=== PATIENT | female | born 1955 | race Caucasian/White ===

== ENCOUNTER 2020-05-06 00:08 | Outpatient (CLI) | payer MEDICARE, SELFPAY ==
[2020-05-06 17:33] LABS: SARS-CoV-2 RNA PCR Negative
== END 2020-05-06 00:09 | disposition home or self-care (01) ==
LOC: ANHCOVIDDT 00:08
PROVIDERS: PCP Internal Medicine; Visit Provider Internal Medicine Gastroenterology
DX: Z01.818 Encounter for other preprocedural examination (principal); Z11.59 Encounter for screening for other viral diseases
CPT/HCPCS: 87635; C9803; U0003

== ENCOUNTER 2020-05-08 00:39 | Day surgery (SDC) | payer MEDICARE, SELFPAY ==
[2020-05-04 11:02] VITALS: BMI 34.3
[2020-05-08 08:09] VITALS: BP 137/64; PULSE 58; RESP 18; TEMP 36.2; O2SAT 100; BMI 33.5
--- NOTE | 2020-05-08 08:26 | WPDANESEPPF ---
Anes - Initial Pre Proc Eval Procedure: Operation Date: 05/08/20 09:00 Proposed Procedures p Esophagogastroduodenoscopy&Screen Colon - Epifanio Ibarra MD Date/Time: 05/08/20 08:26 Surgeon: Epifanio Ibarra MD Pre Op Diagnosis: neoplasm Screening, epigastric pain Patient Data Age: 64 Gender: F Height: 5 ft 3 in Weight: 85.8 kg Last Vital Signs Temp 36.2 C L 05/08/20 08:09 Pulse 58 L 05/08/20 08:09 Resp 18 05/08/20 08:09 BP 137/64 05/08/20 08:09 Pulse Ox 100 05/08/20 08:09 Allergies Allergy/AdvReac Type Severity Reaction Status Date / Time No Known Allergies Allergy Mild Verified 04/07/20 10:03 Home Medications Medication Instructions Recorded Confirmed Type losartan 25 mg tablet 25 mg PO DAILY #90 tablet 02/11/20 05/08/20 Rx fluticasone propionate 50 1 spray NASAL BID 04/06/20 05/08/20 History mcg/actuation nasal spray,suspension multivitamin 1 tablet PO DAILY 04/06/20 05/08/20 History carboxymethylcellulose sodium 0.5 1 drop EACH EYE BID 04/07/20 05/08/20 History % eye drops cetirizine 10 mg chewable tablet 10 mg PO DAILY 04/07/20 05/08/20 History guaifenesin 400 mg tablet 400 mg PO .Daily tablet 04/07/20 05/08/20 History omega-3s 300 tc-oln-ftz-other 1,000 cap PO DAILY 04/07/20 05/08/20 History sfshj9m-scry oil 1,000 mg capsule famotidine 20 mg PO PRN PRN 05/04/20 05/04/20 History [place]razo Nutrition Bs Support 1 tab-cap PO DAILY 05/08/20 05/08/20 History inulin [Fiber Gummies] g PO 05/08/20 History lactobacillus combination no.8 3,000 mmu cells PO DAILY 05/08/20 05/08/20 History [Adult Probiotic] Patient hx anesthesia problems: other (shivering) Family hx anesthesia problems: none PMFSH Past Medical History Medical History Asthma Family History Family History Mother Diabetes mellitus Family history of multiple sclerosis Hypertension Family history of cardiovascular disease Family history of atrial fibrillation Family history of congestive heart failure Family history of obesity Family history of osteoporosis Family history of arthritis Family history of hearing loss Grandparent Family history of cardiovascular disease Acute myocardial infarction, Onset Age: 50 Father Family history of malignant neoplasm of stomach Family history of alcoholism Sibling Family history of obesity Family history of osteoporosis Family history of arthritis Social History Social History Smoking status: Smoker, status unknown Alcohol intake: current Anes - Eval Final PreProcedure Day of Procedure 05/08/20 08:26 Patient weight: obese Heart: regular rate and rhythm Lungs: clear to auscultation Airway: Mallampati scale class II Neurological: alert and oriented Last oral intake: >/= 8 hours ASA classification: III Emergent: no Anesthetic plan: proceed Anesthesia type and monitoring: general GIVS and standard monitoring Informed Consent: The patient's anesthetic plan and its attendant risks and benefits were discussed with the patient/family/POA. Questions were solicited and answers provided to the satisfaction of the patient/family/POA.
[2020-05-08] MEDS: LACTATED RINGERS 1,000 ML 150 ML IV CONT (08:27)
--- NOTE | 2020-05-08 08:29 | WPDGICN ---
Assessment and Plan Assessment and plan (1) Encounter for screening colonoscopy: Code(s): Z12.11 - Encounter for screening for malignant neoplasm of colon Status: Acute Assessment and Plan: Screening colonoscopy to be performed because of her age. (2) Epigastric abdominal pain: Code(s): R10.13 - Epigastric pain Status: Acute Assessment and Plan: Epigastric abdominal pain appears to be consistent with SPEP see a plan is to try an acids and perhaps Pepcid as needed. Further recommendations will be given after endoscopy. EGD to be performed today. GI Consult Note Consult date/time: 05/08/20 08:29 HPI: Halley Gray is a 64 year old female Seen in evaluation at the request of Dr. Rivera. Patient has a history of epigastric pain off and on for at least 1 year. Symptoms appear to worsen on eating spicy and acidic foods. That symptoms improved with antacids. She has not yet begun to take H2 blockers which were prescribed. She denies any abdominal pain over the last several days. Family history is noncontributory. Patient denies any weight loss or bleeding. Patient also desires neoplasia screening. Has been greater than 10 years since last colonoscopy. Her current weight appetite bowel movements are normal. Family history is noncontributory. Review of Systems Review of Systems: All systems reviewed & are unremarkable except as noted in HPI and below PMFSH Past Medical History Medical History Asthma Family History Family History Mother Diabetes mellitus Family history of multiple sclerosis Hypertension Family history of cardiovascular disease Family history of atrial fibrillation Family history of congestive heart failure Family history of obesity Family history of osteoporosis Family history of arthritis Family history of hearing loss Grandparent Family history of cardiovascular disease Acute myocardial infarction, Onset Age: 50 Father Family history of malignant neoplasm of stomach Family history of alcoholism Sibling Family history of obesity Family history of osteoporosis Family history of arthritis Social History Social History Smoking status: Smoker, status unknown Alcohol intake: current Meds Home Medications and Allergies Home Medications Medication Instructions Recorded Confirmed Type losartan 25 mg tablet 25 mg PO DAILY #90 tablet 02/11/20 05/08/20 Rx fluticasone propionate 50 1 spray NASAL BID 04/06/20 05/08/20 History mcg/actuation nasal spray,suspension multivitamin 1 tablet PO DAILY 04/06/20 05/08/20 History carboxymethylcellulose sodium 0.5 1 drop EACH EYE BID 04/07/20 05/08/20 History % eye drops cetirizine 10 mg chewable tablet 10 mg PO DAILY 04/07/20 05/08/20 History guaifenesin 400 mg tablet 400 mg PO .Daily tablet 04/07/20 05/08/20 History omega-3s 300 tx-jsg-hon-other 1,000 cap PO DAILY 04/07/20 05/08/20 History [id number] oil 1,000 mg capsule famotidine 20 mg PO PRN PRN 05/04/20 05/04/20 History Arazo Nutrition Bs Support 1 tab-cap PO DAILY 05/08/20 05/08/20 History inulin [Fiber Gummies] g PO 05/08/20 History lactobacillus combination no.8 3,000 mmu cells PO DAILY 05/08/20 05/08/20 History [Adult Probiotic] Allergies Allergy/AdvReac Type Severity Reaction Status Date / Time No Known Allergies Allergy Mild Verified 04/07/20 10:03 Vital Signs Vital Signs - 24 hr 05/08/20 08:09 Temperature 36.2 C L Pulse Rate 58 L Respiratory Rate 18 Blood Pressure 137/64 Pulse Oximetry 100 Exam Narrative: Exam Narrative: Physical exam reveals patient to be alert. Vital signs are stable. HEENT exam unremarkable. Lungs are clear to auscultation and percussion. Heart is without murmur or extra sounds. Abdominal exam bowel s
[2020-05-08] MEDS: BENZOCAINE (*SP) 60 ML SPRAY CAN (HURRICAINE) 1 SPRAY MUCOUS MEM (09:23)
[2020-05-08 09:48] VITALS: BP 97/47; PULSE 57; RESP 16; O2SAT 98
[2020-05-08 09:58] VITALS: BP 109/51; PULSE 55; RESP 19; O2SAT 100
[2020-05-08 10:08] VITALS: BP 119/53; PULSE 55; RESP 17; O2SAT 100
== END 2020-05-08 10:30 | disposition home or self-care (01) ==
PROVIDERS: PCP Internal Medicine; Visit Provider Internal Medicine Gastroenterology
PROC: 0DJ08ZZ Inspection of Upper Intestinal Tract, Via Natural or Artificial Opening Endoscopic (ICD-10-PCS; CPT 43235; principal; 2020-05-08 09:00)
DX: Z12.11 Encounter for screening for malignant neoplasm of colon (principal); K64.8 Other hemorrhoids; K57.30 Diverticulosis of large intestine without perforation or abscess without bleeding; K22.10 Ulcer of esophagus without bleeding; K21.9 Gastro-esophageal reflux disease without esophagitis; E66.9 Obesity, unspecified; Z68.33 Body mass index [BMI] 33.0-33.9, adult
CPT/HCPCS: 43235; G0121; 87635; C9803; J2704; J7120; U0003

== ENCOUNTER 2020-08-27 13:49 | Outpatient (CLI) | payer MEDICARE, SELFPAY ==
--- NOTE | ~2020-08-27 | DEXA_ITS ---
Bone Density Report Name: Halley Gray Age: 64 Sex: Female Ethnicity: White Date of : 1955 Indication: postmenopausal; Referring Provider: Becky Funk Study: Bone densitometry was performed. Exam Date: August 27, 2020 Accession number: [id number] Bone Density: Region BMD T-score Z-score Classification AP Spine (L1-L4) 1.002 -0.4 1.4 Normal Femoral Neck (Left) 0.679 -1.5 0.0 Osteopenia Total Hip (Left) 0.827 -0.9 0.3 Normal Total Hip Bilateral Avg 0.847 -0.8 0.5 Normal Femoral Neck (Right) 0.704 -1.3 0.2 Osteopenia Total Hip (Right) 0.866 -0.6 0.7 Normal World Health Organization criteria for BMD impression classify patients as: Normal (T-score at or above -1.0), Osteopenia (T-score between -1.0 and -2.5), or Osteoporosis (T-score at or below -2.5). 10-year Fracture Risk(1): Major Osteoporotic Fracture 8.5% Hip Fracture 0.9% Reported Risk Factors: [place] (), Neck BMD=0.679, BMI=34.3 (1) FRAX(R) Version 3.08. Fracture probability calculated for an untreated patient. Fracture probability may be lower if the patient has received treatment. Previous Exams: Region Exam Age BMD T-score BMD Change BMD Change Date g/cm2 vs Baseline vs Previous AP Spine(L1-L4) 08/27/2020 64 1.002 -0.4 -0.119(-10.6%) 0.025(2.5%)* 03/16/2018 62 0.977 -0.6 -0.143(-12.8%) -0.143(-12.8%) 10/26/2007 52 1.120 0.7 Total Hip(Left) 08/27/2020 64 0.827 -0.9 -0.148(-15.2%) -0.009(-1.1%) 03/16/2018 62 0.837 -0.9 -0.139(-14.2%) -0.139(-14.2%) 10/26/2007 52 0.976 0.3 Total Hip(Right) 08/27/2020 64 0.866 -0.6 -0.095(-9.9%)# -0.033(-3.7%)* 03/16/2018 62 0.899 -0.4 -0.062(-6.4%)# -0.062(-6.4%)# 10/26/2007 52 0.961 0.2 *Denotes significance at 95% confidence level, LSC for AP Spine = 0.022 g/cm2, LSC for Total Hip = 0.027 g/cm2 Clinical Information Provided by Patient: Has used the following medications: Vitamin D, Calcium Patient maximum height was 64 Menopause Age: 55 No regular weight bearing exercise Does not regularly consume dairy products Drinks caffeinated beverages Onset of menses at age 15 Number of children 2 Impression: The patient has low bone mass, based on the Left Femoral Neck T-score. The patient has an estimated ten-year risk of hip fracture of 0.9% and an estimated ten-year risk of major fracture of 8.5%, based on the WHO FRAX algorithm. The BMD for the Total Hip(Right) decreased,
== END 2020-08-27 13:50 | disposition home or self-care (01) ==
LOC: ANHIMG 13:51
PROVIDERS: PCP Internal Medicine; Visit Provider Student in an Organized Health Care Education/Training Program
DX: Z78.0 Asymptomatic menopausal state (principal); M85.852 Other specified disorders of bone density and structure, left thigh; M85.851 Other specified disorders of bone density and structure, right thigh
CPT/HCPCS: 77080

== ENCOUNTER 2020-09-05 10:41 | Outpatient (CLI) | payer MEDICARE, SELFPAY ==
--- NOTE | ~2020-09-05 | US_ITS ---
EXAMINATION: US pelvic complete w TV DATE: 09/05/2020 11:32 INDICATION: Postmenopausal bleeding Comparison:No prior studies for comparison. TECHNIQUE: Multiple transabdominal and endovaginal sonographic images of the pelvis performed. FINDINGS: The uterus measures 6.7 x 3.7 x 3.5 cm. Uterus is retroverted. The endometrial complex neil ures 12 mm. Endometrium is heterogeneous with increased vascularity. There are nabothian cysts. There is a Headache uterine fibroid measuring 2.2 cm maximum dimension. The ovaries not visualized. There is no free fluid in the pelvis. There are no abnormal masses seen on either side. IMPRESSION: 1. Thickened endomtrial complex. The differential diagnosis includes endometrial hyperplasia, polyp a nd carcinoma. Biopsy is recommended. Reviewed, dictated and finalized at location A. IMPRESSION: 1. Thickened endomtrial complex. The differential diagnosis includes endometria l hyperplasia, polyp and carcinoma. Biopsy is recommended.
== END 2020-09-05 10:42 | disposition home or self-care (01) ==
PROVIDERS: PCP Internal Medicine; Visit Provider Student in an Organized Health Care Education/Training Program
DX: N95.0 Postmenopausal bleeding (principal); R93.89 Abnormal findings on diagnostic imaging of other specified body structures
CPT/HCPCS: 76830; 76856

== ENCOUNTER 2020-09-23 11:45 | Outpatient (CLI) | payer MEDICARE, SELFPAY ==
--- NOTE | ~2020-09-23 | MM_ITS ---
EXAMINATION: MM screening jessica BI w luis HISTORY: Screening mammogram, family history of breast cancer in her sister. TECHNIQUE: Craniocaudal and mediolateral oblique 3-D tomosynthesis images were obtained and synthetic 2-D images were generated. CAD analysis was submitted and interpreted. COMPARISON: 03/16/2018, 10/08/2015, 07/11/2012 BREAST PARENCHYMAL COMPOSITION: The breasts are almost entirely fatty. FINDINGS: There is no evidence of suspicious mass, calcification, or architectural distortion to sugg est malignancy in either breast. There has been no suspicious interval change. IMPRESSION: 1. No mammographic evidence of malignancy. 2. Recommend routine screening mammography in one year. BI-RADS Category 1: Negative Reviewed, dictated and finalized at location D.
== END 2020-09-23 11:46 | disposition home or self-care (01) ==
LOC: ANHIMG 11:47
PROVIDERS: PCP Internal Medicine; Visit Provider Internal Medicine
DX: Z12.31 Encounter for screening mammogram for malignant neoplasm of breast (principal)
CPT/HCPCS: 77063; 77067

== ENCOUNTER 2020-09-30 01:16 | Outpatient (CLI) | payer MEDICARE, SELFPAY ==
[2020-10-01 03:00] LABS: SARS-CoV-2 RNA PCR Negative
== END 2020-09-30 01:17 | disposition home or self-care (01) ==
LOC: ANHCOVIDDT 01:16
PROVIDERS: PCP Internal Medicine; Visit Provider Student in an Organized Health Care Education/Training Program
DX: Z01.812 Encounter for preprocedural laboratory examination (principal); Z20.828 Contact with and (suspected) exposure to other viral communicable diseases
CPT/HCPCS: 87635; C9803; U0003

== ENCOUNTER 2020-10-02 01:42 | Day surgery (SDC) | payer MEDICARE, SELFPAY ==
[2020-09-28 10:49] VITALS: BMI 34.4
--- NOTE | 2020-10-01 07:51 | PM.IMHP ---
H&P: HPI History of Present Illness Date/Time: 10/01/20 07:51 Patient is a 65 year old postmenopausal woman who presented to gynecology office in August 2020 for a routine wellness visit. During visit, patient reported an episode of bleeding approximately one year earlier when she stared Losartan. A pelvic ultrasound was obtained and showed a thickened endometrial stripe measuring 12 mm. Endometrium was also noted to be heterogeneous with increased vascularity. Discussion had with patient regarding need for further evaluation and management. Chief complaint: thickened endometrium Narrative: Halley Gray is a 65 year old female [facility] Past Medical History Medical History Asthma Hypertension Osteoporosis Torn meniscus Surgical History Surgical History H/O tubal ligation H/O: knee surgery History of cholecystectomy [place] teeth removed Family History Family History Mother Diabetes mellitus Family history of multiple sclerosis Hypertension Family history of cardiovascular disease Family history of atrial fibrillation Family history of congestive heart failure Family history of obesity Family history of osteoporosis Family history of arthritis Family history of hearing loss Grandparent Family history of cardiovascular disease Acute myocardial infarction, Onset Age: 50 Father Family history of malignant neoplasm of stomach Family history of alcoholism Sibling Family history of obesity Family history of osteoporosis Family history of arthritis Social History Social History Smoking packs per day: 0.5 Smoking cigarettes per day: 10.0 Years smoked: 8 Smoking pack-years: 4.00 Smoking status: Former smoker Smoking end date: 05/27/80 Alcohol intake: current Drinks per week: 6 Substance use: current Substance use type: marijuana Other substance usage details: CBD 5 DROPS BID Spiritual care concerns: No Meds Home Medications and Allergies Home Medications Medication Instructions Recorded Confirmed Type fluticasone propionate 50 1 spray NASAL HS 04/06/20 09/28/20 History mcg/actuation nasal spray,suspension multivitamin 1 tablet PO DAILY 04/06/20 09/28/20 History carboxymethylcellulose sodium 0.5 1 drop EACH EYE BID 04/07/20 09/28/20 History % eye drops guaifenesin 400 mg tablet 400 mg PO QAM tablet 04/07/20 09/28/20 History omega-3s 300 wh-vin-pjx-other 1,000 cap PO DAILY 04/07/20 09/28/20 History hedhj8l-ivgm oil 1,000 mg capsule famotidine 20 mg PO DAILY 05/04/20 09/28/20 History inulin [Fiber Gummies] 2 g PO DAILY 05/08/20 09/28/20 History lactobacillus combination no.8 3,000 mmu cells PO DAILY 05/08/20 09/28/20 History [Adult Probiotic] cetirizine 10 mg capsule 10 mg PO QAM 08/27/20 09/28/20 History albuterol sulfate 2 puff INHALATION QID PRN 09/28/20 09/28/20 History ascorbic acid (vitamin C) 500 mg PO DAILY 09/28/20 09/28/20 History cannabidiol 5 drp PO BID 09/28/20 09/28/20 History cholecalciferol (vitamin D3) 250 mcg PO DAILY 09/28/20 09/28/20 History [Vitamin D3] diclofenac sodium 50 mg PO DAILY 09/28/20 09/28/20 History losartan 25 mg PO QAM 09/28/20 09/28/20 History pantoprazole 40 mg PO DAILY 09/28/20 09/28/20 History zinc 100 mg PO DAILY 09/28/20 09/28/20 History rosuvastatin 5 mg tablet 5 mg PO DAILY #90 tablet 09/29/20 Rx Allergies Allergy/AdvReac Type Severity Reaction Status Date / Time No Known Allergies Allergy Mild Verified 09/28/20 10:38
--- NOTE | 2020-10-01 07:59 | PM.IMHP ---
H&P: HPI History of Present Illness Date/Time: 10/01/20 07:59 Patient is a 65 year old postmenopausal woman who presented to gynecology office in August 2020 for a routine wellness visit. During visit, patient reported an episode of bleeding approximately one year earlier when she stared Losartan. A pelvic ultrasound was obtained and showed a thickened endometrial stripe measuring 12 mm. Endometriumwas also noted to be heterogeneous with increased vascularity. Discussion had with patient regarding need for further evaluation Discussed in-office EMB vs. hysteroscopy/D&C. Decision was made to proceed with hysteroscopy/D&C as next step in evaluation. Patient reports feeling well today without complaints. Chief complaint: thickened endometrium Narrative: Halley Gray is a 65 year old female Review of Systems Review of Systems: All systems reviewed & are unremarkable except as noted in HPI and below Constitutional: Constitutional: Reports as per HPI, Reports no additional constitutional complaints, Denies chills, Denies fever(s), Denies headache(s) and Denies night sweats Eyes: Eyes: Reports as per HPI and Reports no additional eye complaints ENT: Reports system reviewed and no additional complaints, except as documented, Reports as per HPI, Reports Normal hearing present and Denies headache(s) Cardiovascular: Cardiovascular: Reports as per HPI, Reports no additional cardiovascular complaints, Denies chest pain and Denies dyspnea Respiratory: Respiratory: Reports as per HPI, Reports no additional respiratory complaints, Denies cough and Denies dyspnea Gastrointestinal: Gastrointestinal: Reports as per HPI, Reports no additional gastrointestinal complaints, Denies abdominal pain, Denies change in bowel habits, Denies change in stool character, Denies nausea and Denies vomiting Genitourinary: Genitourinary: Reports no additional female genitourinary complaints, Reports as per HPI, Denies abnormal vaginal bleeding, Denies genital lesions, Denies hot flashes, Denies dyspareunia, Denies pelvic pain, Denies sexual dysfunction, Denies urinary incontinence, Denies vaginal discharge, Denies vaginal dryness and Denies vaginal odor Musculoskeletal: Musculoskeletal: Reports no additional musculoskeletal complaints and Reports as per HPI Integumentary/Breasts: Skin/Breast: Reports system reviewed and no additional complaints, except as docu, Reports as per HPI, Denies breast pain and Denies nipple discharge Neurologic: Reports system reviewed and no additional complaints, except as documented, Reports as per HPI, Reports Normal hearing present and Denies headache(s) Psychiatric: Psychiatric: Reports no additional psychiatric complaints, Reports as per HPI, Denies anxiety and Denies depression Endocrine: Endocrine: Reports no additional endocrine complaints and Reports as per HPI Hematologic/Lymphatic: Hematologic/Lymphatic: Reports no additional hematologic/lymphatic complaints and Reports as per HPI Allergic/Immunologic: Allergic/Immunologic: Reports no additional allergic/immunologic complaints and Reports as per HPI PMFSH Past Medical History Medical History Asthma Hypertension Osteoporosis Torn meniscus Surgical History Surgical History H/O tubal ligation H/O: knee surgery History of cholecystectomy [place] teeth removed Family History Family History Mother Diabetes mellitus Family history of multiple sclerosis Hypertension Family history of cardiovascular disease Family history of atrial fibrillation Family history of congestive heart failure Family history of obesity Family history of osteoporosis Family history of arthritis Family history of hearing loss Grandparent Family history of cardiovascular disease Acute myocardial infarction, Onset Age: 50 Father Family h
--- NOTE | 2020-10-01 10:19 | WPDANESEPPF ---
Anes - Initial Pre Proc Eval Procedure: Operation Date: 10/02/20 09:15 Proposed Procedures p Hysteroscopy, Dilation and Curettage, Possible Myosure - Becky Funk MD Date/Time: 10/01/20 10:19 Surgeon: Becky Funk MD Pre Op Diagnosis: thickened endometrium Patient Data Age: 65 Gender: F Height: 1.63 m Weight: 91 kg Allergies Allergy/AdvReac Type Severity Reaction Status Date / Time No Known Allergies Allergy Mild Verified 09/28/20 10:38 Home Medications Medication Instructions Recorded Confirmed Type fluticasone propionate 50 1 spray NASAL HS 04/06/20 09/28/20 History mcg/actuation nasal spray,suspension multivitamin 1 tablet PO DAILY 04/06/20 09/28/20 History carboxymethylcellulose sodium 0.5 1 drop EACH EYE BID 04/07/20 09/28/20 History % eye drops guaifenesin 400 mg tablet 400 mg PO QAM tablet 04/07/20 09/28/20 History omega-3s 300 be-mzt-jyy-other 1,000 cap PO DAILY 04/07/20 09/28/20 History yhkaj0u-tseb oil 1,000 mg capsule famotidine 20 mg PO DAILY 05/04/20 09/28/20 History inulin [Fiber Gummies] 2 g PO DAILY 05/08/20 09/28/20 History lactobacillus combination no.8 3,000 mmu cells PO DAILY 05/08/20 09/28/20 History [Adult Probiotic] cetirizine 10 mg capsule 10 mg PO QAM 08/27/20 09/28/20 History albuterol sulfate 2 puff INHALATION QID PRN 09/28/20 09/28/20 History ascorbic acid (vitamin C) 500 mg PO DAILY 09/28/20 09/28/20 History cannabidiol 5 drp PO BID 09/28/20 09/28/20 History cholecalciferol (vitamin D3) 250 mcg PO DAILY 09/28/20 09/28/20 History [Vitamin D3] diclofenac sodium 50 mg PO DAILY 09/28/20 09/28/20 History losartan 25 mg PO QAM 09/28/20 09/28/20 History pantoprazole 40 mg PO DAILY 09/28/20 09/28/20 History zinc 100 mg PO DAILY 09/28/20 09/28/20 History rosuvastatin 5 mg tablet 5 mg PO DAILY #90 tablet 09/29/20 Rx PMFSH Past Medical History Medical History Asthma Hypertension Osteoporosis Torn meniscus Surgical History Surgical History H/O tubal ligation H/O: knee surgery History of cholecystectomy [place] teeth removed Family History Family History Mother Diabetes mellitus Family history of multiple sclerosis Hypertension Family history of cardiovascular disease Family history of atrial fibrillation Family history of congestive heart failure Family history of obesity Family history of osteoporosis Family history of arthritis Family history of hearing loss Grandparent Family history of cardiovascular disease Acute myocardial infarction, Onset Age: 50 Father Family history of malignant neoplasm of stomach Family history of alcoholism Sibling Family history of obesity Family history of osteoporosis Family history of arthritis Social History Social History Smoking packs per day: 0.5 Smoking cigarettes per day: 10.0 Years smoked: 8 Smoking pack-years: 4.00 Smoking status: Former smoker Smoking end date: 05/27/80 Alcohol intake: current Drinks per week: 6 Substance use: current Substance use type: marijuana Other substance usage details: CBD 5 DROPS BID Spiritual care concerns: No Anes - Eval Final PreProcedure Day of Procedure 10/01/20 10:19 Patient weight: obese Heart: regular rate and rhythm Lungs: clear to auscultation and normal air movement Airway: Mallampati scale class II Neurological: alert and oriented Last oral intake: >/= 8 hours ASA classification: III Emergent: no Anesthetic plan: proceed Anesthesia type and monitoring: general GIVS Informed Consent: The patient's anesthetic plan and its attendant risks and benefits were discussed with the patient/family/POA. Questions were solicited and answers provided to the satisfaction of the patient/family/POA.
--- NOTE | 2020-10-02 06:06 | ECG_ITS ---
Measurements Intervals [place] Rate: 56 P: 44 NM: 227 QRS: 42 QRSD: 84 T: 10 QT: 445 QTc: 431 Interpretive Statements SINUS BRADYCARDIA WITH FIRST DEGREE AV BLOCK BASELINE ARTIFACT- I, II, III ABNORMAL ECG Electronically Signed On 10-02-2020 8:08:42 [employer] MACHINE OPERATOR by Thiago Gloria D.O.
[2020-10-02 08:00] VITALS: BP 146/92; PULSE 60; RESP 16; TEMP 36.4; O2SAT 100
[2020-10-02] MEDS: LACTATED RINGERS 1,000 ML 30 ML IV CONT ×2 (08:32→09:48)
[2020-10-02] MEDS: ACETAMINOPHEN 500 MG TABLET 1000 MG PO (08:34)
--- NOTE | 2020-10-02 08:41 | WPDANESEPPF ---
Anes - Initial Pre Proc Eval Procedure: Operation Date: 10/02/20 09:15 Proposed Procedures p Hysteroscopy, Dilation and Curettage, Possible Myosure - Becky Funk MD Date/Time: 10/02/20 08:41 Surgeon: Becky Funk MD Pre Op Diagnosis: thickened endometrium Patient Data Age: 65 Gender: F Height: 5 ft 4 in Weight: 87.9 kg Last Vital Signs Temp 36.4 C L 10/02/20 08:00 Pulse 60 10/02/20 08:00 Resp 16 10/02/20 08:00 BP 146/92 H 10/02/20 08:00 Pulse Ox 100 10/02/20 08:00 Allergies Allergy/AdvReac Type Severity Reaction Status Date / Time No Known Allergies Allergy Mild Verified 10/02/20 08:36 Home Medications Medication Instructions Recorded Confirmed Type fluticasone propionate 50 1 spray NASAL HS 04/06/20 10/02/20 History mcg/actuation nasal spray,suspension multivitamin 1 tablet PO DAILY 04/06/20 10/02/20 History carboxymethylcellulose sodium 0.5 1 drop EACH EYE BID 04/07/20 10/02/20 History % eye drops guaifenesin 400 mg tablet 400 mg PO QAM tablet 04/07/20 10/02/20 History omega-3s 300 xb-wyr-lsi-other 1,000 cap PO DAILY 04/07/20 10/02/20 History [id number] oil 1,000 mg capsule famotidine 20 mg PO DAILY 05/04/20 10/02/20 History inulin [Fiber Gummies] 2 g PO DAILY 05/08/20 10/02/20 History lactobacillus combination no.8 3,000 mmu cells PO DAILY 05/08/20 10/02/20 History [Adult Probiotic] cetirizine 10 mg capsule 10 mg PO QAM 08/27/20 10/02/20 History albuterol sulfate 2 puff INHALATION QID PRN 09/28/20 10/02/20 History ascorbic acid (vitamin C) 500 mg PO DAILY 09/28/20 10/02/20 History cannabidiol 5 drp PO BID 09/28/20 10/02/20 History cholecalciferol (vitamin D3) 250 mcg PO DAILY 09/28/20 10/02/20 History [Vitamin D3] diclofenac sodium 50 mg PO DAILY 09/28/20 10/02/20 History losartan 25 mg PO QAM 09/28/20 10/02/20 History pantoprazole 40 mg PO DAILY 09/28/20 10/02/20 History zinc 100 mg PO DAILY 09/28/20 10/02/20 History rosuvastatin 5 mg tablet 5 mg PO DAILY #90 tablet 09/29/20 10/02/20 Rx Patient hx anesthesia problems: none Family hx anesthesia problems: none PMFSH Past Medical History Medical History Asthma Hypertension Osteoporosis Torn meniscus Surgical History Surgical History H/O tubal ligation H/O: knee surgery History of cholecystectomy [place] teeth removed Family History Family History Mother Diabetes mellitus Family history of multiple sclerosis Hypertension Family history of cardiovascular disease Family history of atrial fibrillation Family history of congestive heart failure Family history of obesity Family history of osteoporosis Family history of arthritis Family history of hearing loss Grandparent Family history of cardiovascular disease Acute myocardial infarction, Onset Age: 50 Father Family history of malignant neoplasm of stomach Family history of alcoholism Sibling Family history of obesity Family history of osteoporosis Family history of arthritis Social History Social History Smoking packs per day: 0.5 Smoking cigarettes per day: 10.0 Years smoked: 8 Smoking pack-years: 4.00 Smoking status: Former smoker Smoking end date: 05/27/80 Alcohol intake: current Drinks per week: 6 Substance use: current Substance use type: marijuana Other substance usage details: CBD 5 DROPS BID Living arrangements: with family Spiritual care concerns: No Anes - Eval Final PreProcedure Day of Procedure 10/02/20 08:41 Patient weight: obese Heart: regular rate and rhythm Lungs: clear to auscultation Airway: Mallampati scale class II Neurological: alert and oriented Last oral intake: >/= 8 hours ASA classification: II Emergent: no Anesthetic plan: pr
--- NOTE | 2020-10-02 09:03 | WPDHPUPDATE1 ---
History and Physical Update Update Date/Time: 10/02/20 09:03 History and Physical has been reviewed, including an updated exam of the patient. There are NO changes in the patient's condition. Risks, benefits, and alternatives have been discussed and questions answered. Patient agrees to proceed with procedure.
[2020-10-02] MEDS: LIDOCAINE HCL 1% LOCAL INJ 10 ML VIAL 50 ML INFILTRATE (09:22)
--- NOTE | 2020-10-02 09:42 | SUR.OPER ---
Hysteroscope irrigation 750 in 650 out
[2020-10-02 09:48] VITALS: BP 112/60; PULSE 64; RESP 14; O2SAT 97
--- NOTE | 2020-10-02 09:48 | P.OP_ITS ---
Procedure Note - Detailed Date of procedure: 10/02/20 Pre-op diagnosis: thickened endometrium postmenopausal bleeding Post-op diagnosis: same Procedure performed: Operative hysteroscopy, dilation and curettage, endometrial polypectomy via Myosure Description of procedure: The patient was taken to the operating room where she self-transferred to the operating room table. The patient was placed in dorsal supine position. Anesthesia was administered and found to be adequate. The patient was repositioned in dorsal lithotomy position with the use of Godfrey stirrups. She was prepped and draped in the usual sterile fashion. A red rubber catheter was used to drain the bladder of 150 cc of clear urine. A bivalve speculum was inserted into the vagina. The cervix was well visualized and the anterior lip of the cervix was grasped with a single-tooth tenaculum. A paracervical block was performed with 1% plain lidocaine. 5 cc of lidocaine was administered on both sides for a total of 10 cc. The cervix was serially dilated to accommodate the hysteroscope. The hysteroscope was introduced into the endometrial cavity and a general survey was performed. Two medium sized endometrial polyps were visualized. One was pedunculated protruding from the left side wall of the endometrium. The second polyp was more sessile in appearance and was noted to be protruding from the anterior right aspect of the endometrium. Several photographs were taken. Decision was made to convert to an operative hysteroscopy. The MyoSure device was opened on the sterile field and advanced through the hysteroscope. This device was activated and rotated to clear the endometrial cavity of the polyps. After the polyps were completely evacuated, bilateral tubal ostia were well visualized. The remainder of the endometrium appeared to be atrophic and within normal limits. A few photographs of the cleared cavity for also taken. The hysteroscope was removed. A medium- size rigid curette was then used to perform a curettage. All quadrants of the endometrial cavity were explored. A minimal amount of tissue was obtained and prepared to be sent to pathology for analysis. The tenaculum was removed. No bleeding was noted. Procedure was deemed complete. The speculum was removed. The patient was cleansed and dried. She was taken out of the dorsal lithotomy position and awakened from anesthesia without difficulty. She was transferred to recovery room in stable condition. All sponge and instrument counts were correct at the end the procedure. Anesthesia: MAC Surgeon: Becky Funk MD Estimated blood loss (mL): 0 IV fluids (mL): 500 Urine output (mL): 150 Drains: No Packing: No Pathology: yes (endometrial curettings, endometrial shavings) Complications: No immediate complications Condition: stable Disposition: same day Findings: Hysteroscopic fluid: 750cc in/ 650cc out Intraoperative findings: two endometrial polyps visualized on hysterscopy, one was pedunculated, the other was more sessile, rest of cavity appeared within normal limits, bilateral tubal ostia visualized
[2020-10-02 10:18] VITALS: BP 148/66; PULSE 56; RESP 14
[2020-10-02 10:30] VITALS: BP 135/62; PULSE 60; RESP 14
--- NOTE | 2020-10-02 10:51 | WPDCN ---
HPI Data of Consult Date/Time: 10/02/20 10:51 Requesting Physician: Becky Funk MD Primary Care Provider: Salazar Rivera MD Consult Narrative Narrative: Halley Gray is a 65 year old female [facility] Past Medical History Medical History Asthma Hypertension Osteoporosis Torn meniscus Surgical History Surgical History H/O tubal ligation H/O: knee surgery History of cholecystectomy [place] teeth removed Family History Family History Mother Diabetes mellitus Family history of multiple sclerosis Hypertension Family history of cardiovascular disease Family history of atrial fibrillation Family history of congestive heart failure Family history of obesity Family history of osteoporosis Family history of arthritis Family history of hearing loss Grandparent Family history of cardiovascular disease Acute myocardial infarction, Onset Age: 50 Father Family history of malignant neoplasm of stomach Family history of alcoholism Sibling Family history of obesity Family history of osteoporosis Family history of arthritis Social History Social History Smoking packs per day: 0.5 Smoking cigarettes per day: 10.0 Years smoked: 8 Smoking pack-years: 4.00 Smoking status: Former smoker Smoking end date: 05/27/80 Alcohol intake: current Drinks per week: 6 Substance use: current Substance use type: marijuana Other substance usage details: CBD 5 DROPS BID Living arrangements: with family Spiritual care concerns: No Meds Home Medications and Allergies Home Medications Medication Instructions Recorded Confirmed Type fluticasone propionate 50 1 spray NASAL HS 04/06/20 10/02/20 History mcg/actuation nasal spray,suspension multivitamin 1 tablet PO DAILY 04/06/20 10/02/20 History carboxymethylcellulose sodium 0.5 1 drop EACH EYE BID 04/07/20 10/02/20 History % eye drops guaifenesin 400 mg tablet 400 mg PO QAM tablet 04/07/20 10/02/20 History omega-3s 300 pf-saq-bcu-other 1,000 cap PO DAILY 04/07/20 10/02/20 History ovfmm0x-imvy oil 1,000 mg capsule famotidine 20 mg PO DAILY 05/04/20 10/02/20 History inulin [Fiber Gummies] 2 g PO DAILY 05/08/20 10/02/20 History lactobacillus combination no.8 3,000 mmu cells PO DAILY 05/08/20 10/02/20 History [Adult Probiotic] cetirizine 10 mg capsule 10 mg PO QAM 08/27/20 10/02/20 History albuterol sulfate 2 puff INHALATION QID PRN 09/28/20 10/02/20 History ascorbic acid (vitamin C) 500 mg PO DAILY 09/28/20 10/02/20 History cannabidiol 5 drp PO BID 09/28/20 10/02/20 History cholecalciferol (vitamin D3) 250 mcg PO DAILY 09/28/20 10/02/20 History [Vitamin D3] diclofenac sodium 50 mg PO DAILY 09/28/20 10/02/20 History losartan 25 mg PO QAM 09/28/20 10/02/20 History pantoprazole 40 mg PO DAILY 09/28/20 10/02/20 History zinc 100 mg PO DAILY 09/28/20 10/02/20 History rosuvastatin 5 mg tablet 5 mg PO DAILY #90 tablet 09/29/20 10/02/20 Rx Allergies Allergy/AdvReac Type Severity Reaction Status Date / Time No Known Allergies Allergy Mild Verified 10/02/20 08:36 Vital Signs Vital Signs - 24 hr 10/02/20 08:00 10/02/20 09:48 10/02/20 10:18 Temperature 36.4 C L Pulse Rate 60 64 56 L Respiratory Rate 16 14 14 Blood Pressure 146/92 H 112/60 148/66 H Pulse Oximetry 100 97 10/02/20 10:30 Temperature Pulse Rate 60 Respiratory Rate 14 Blood Pressure 135/62 Pulse Oximetry
== END 2020-10-02 10:42 | disposition home or self-care (01) ==
PROVIDERS: PCP Internal Medicine; Visit Provider Student in an Organized Health Care Education/Training Program
PROC: 0U5B8ZZ Destruction of Endometrium, Via Natural or Artificial Opening Endoscopic (ICD-10-PCS; CPT 58563; principal; 2020-10-02 09:15)
DX: R93.89 Abnormal findings on diagnostic imaging of other specified body structures (principal); N95.0 Postmenopausal bleeding; N84.0 Polyp of corpus uteri; I10 Essential (primary) hypertension; J45.909 Unspecified asthma, uncomplicated; M81.0 Age-related osteoporosis without current pathological fracture; Z87.891 Personal history of nicotine dependence
CPT/HCPCS: 58558; 88305; 93005; A9270; J2250; J2405; J2704; J3010; J7120

== ENCOUNTER 2023-04-27 09:43 | Outpatient (CLI) | payer MEDICARE, SELFPAY ==
--- NOTE | 2023-04-27 10:54 | ECG_ITS ---
Measurements Intervals [place] Rate: 49 P: 72 DC: 224 QRS: 39 QRSD: 88 T: 16 QT: 451 QTc: 410 Interpretive Statements SINUS BRADYCARDIA WITH SINUS ARRHYTHMIA WITH FIRST DEGREE AV BLOCK COMPARED TO ECG 10/02/2020 08:05:16 SINUS ARRHYTHMIA NOW PRESENT Electronically Signed On 04-27-2023 15:28:21 CDT by Henrik Burgess M.D.
[2023-04-27 11:22] LABS: Basophils Percent Auto 0.7 % (0.2-1.2); Eosinophils Absolute Auto 0.1 K/mm3 (0-0.3); Eosinophils Percent Auto 1.7 % (0-4.4); Hematocrit 41.5 % (37.0-47.0); Hemoglobin 13.5 g/dL (12.0-15.0); Immature Granulocyte Absolute 0.01 K/mm3 (0.00-0.031); Immature Granulocyte Percent A 0.2 % (0-0.5); Lymphocytes Absolute Auto 2.27 K/mm3 (0.9-3.2); Lymphocytes Percent Auto 39.3 % (18.3-44.2); Mean Corpuscular HGB Conc 32.5 g/dl (32-36); Mean Corpuscular Hemoglobin 31.7 pg (26-34); Mean Corpuscular Volume 97.4 fl (80-100); Mean Platelet Volume 10.7 fl (7.4-10.4); Monocytes Absolute Auto 0.4 K/mm3 (0.1-0.6); Monocytes Percent Auto 6.4 % (2.6-8.5); Neutrophils Percent Auto 51.7 % (45.5-73.1); Platelet Count Result 231 k/mm3 (150-375); Red Blood Count 4.26 M/mm3 (4.2-5.4); Red Cell Distribution Width 12.7 % (11.5-14.5); White Blood Count 5.8 K/mm3 (4.5-10.0)
[2023-04-27 11:26] LABS: Urine Cotinine NEGATIVE
[2023-04-27 11:27] LABS: Albumin Level 4.1 g/dL (3.5-5.1); Anion Gap 2 mmol/L (8-16); Blood Urea Nitrogen 13 mg/dL (7-17); Calcium 8.9 mg/dL (8.4-10.2); Carbon Dioxide 34 mmol/L (22-30); Chloride 105 mmol/L (98-107); Estimated Glomerular Filt Rate > 60; Glucose 106 mg/dL (65-110); Potassium 4.8 mmol/L (3.4-5.0); Sodium 141 mmol/L (137-145)
[2023-04-27 12:19] LABS: Hemoglobin A1C 5.7 % (<5.7)
== END 2023-04-27 09:44 | disposition home or self-care (01) ==
LOC: ANHSURGERY 09:52
PROVIDERS: PCP Internal Medicine; Visit Provider Orthopaedic Surgery
DX: M17.11 Unilateral primary osteoarthritis, right knee (principal); Z01.818 Encounter for other preprocedural examination
CPT/HCPCS: 80048; 80307; 82040; 83036; 85025; 86850; 86900; 86901; 87081; 93005

== ENCOUNTER 2023-06-14 00:56 | Day surgery (SDC) | payer MEDICARE, SELFPAY ==
[2023-04-27 10:00] VITALS: BMI 33.3
--- NOTE | 2023-04-27 10:34 | PC.NURSE ---
Addendum entered by Rahel Smith RN 04/27/23 10:40: TOTAL JOINT CLASS 05/03/23 AT 10 AM Original Note: Report to the Outpatient Waiting Room, entrance under the green pavilion located off [facility], at time __1000 on date __05/10/23 . Planned Procedure Time: _1200 . Time changes happen often and if your time is changed the preop area will call you the afternoon before. - You and your visitor will be asked to self-screen and do not enter if you have any COVID symptoms. - A mask is optional within the hospital at this time. Patients may have clear liquids (water, carbonated beverages, clear teas, apple juice) until 3 hours prior to surgery with a maximum of 20 ounces. - No food from midnight until time of surgery - Infants may have breast milk until 4 hours before surgery, formula 6 hours prior to surgery. - Children will be allowed to drink immediately following surgery. If applicable, please bring a bottle or sippy cup to assist with drinking. Juice, water, soda, and popsicles are readily available. For infants on formula, please bring formula the day of surgery. Pacifiers are allowed. Take the following medications with a SIP of water the morning of surgery: ___AMLODIPINE, DO NOT STOP ANY OF YOUR OTHER PRESCRIPTION MEDICATIONS PRIOR TO SURGERY ?EXCEPT THE FOLLOWING Medications to discontinue per physician __ALL VITAMINS/SUPPLEMENTS 3 DAYS PRE OP .LAST DOSE 05/06/23 Please no make-up, nail mohawk, hairspray, perfume, deodorant, or body powder the day of surgery. No jewelry (including any body piercings) or valuables the day of surgery, leave them at home. Please take a shower or bath the night before, or the morning of, surgery with an antibacterial soap. Wear comfortable, loose fitting clothing. Children are encouraged to wear pajamas. - Jewelry must be removed prior to entering the operating room. Rings and piercings that are not removed may be cut off. - The hospital will not accept responsibility for valuables. - Please leave all valuables, including medications, at home the day of surgery. If you are going home after surgery, a licensed hammer driver must drive you home. - NO public transportation without another adult if you receive anesthesia. - We recommend that an adult stay with you for 24 hours following discharge. - We also recommend that you do not drive, make important decision, drink alcoholic beverages, or take any drugs that were not prescribed by your health care provider for at least 24 hours after your discharge time. For Pediatric surgeries, we recommend two adults accompany the child home. Follow any additional instructions given to you from your surgeon. If you or anyone in your household have experienced Covid symptoms in the past week, please notify your surgeon or the nurse liaison at the phone number below for possible testing. VERBAL AND WRITTEN instructions given to PATIENT and asked if any additional questions and then verbalized understanding. Patient advised to call surgeon office or pre surgery nurse liaison [phone] if any additional questions.
[2023-04-27 10:55] VITALS: BP 146/86; PULSE 62; RESP 18; TEMP 36.6; O2SAT 98
--- NOTE | 2023-05-05 07:47 | PM.IMHP ---
H&P: HPI History of Present Illness Date/Time: 05/05/23 07:47 Chief Complaint: Right knee DJD Narrative: 67-year-old female patient of Dr. Rivera who presents today for a right total arthroplasty. Patient has been having pain in his knee for 2-3 years. It has progressively got worse to the point now where she is having pain on the basis. Patient is not getting any relief nonsurgical treatments in the knee. She feels this point she is ready to proceed with total knee arthroplasty at this point. Review of Systems Review of Systems: All systems reviewed & are unremarkable except as noted in HPI and below PMFSH Past Medical History Medical History Asthma Hypertension Osteoporosis Torn meniscus Surgical History Surgical History H/O tubal ligation H/O: knee surgery History of cholecystectomy History of dilatation and curettage History of hysteroscopy [place] teeth removed Family History Family History Mother Diabetes mellitus Family history of multiple sclerosis Hypertension Family history of cardiovascular disease Family history of atrial fibrillation Family history of congestive heart failure Family history of obesity Family history of osteoporosis Family history of arthritis Family history of hearing loss Grandparent Family history of cardiovascular disease Acute myocardial infarction, Onset Age: 50 Father Family history of malignant neoplasm of stomach Family history of alcoholism Sibling Family history of obesity Family history of osteoporosis Family history of arthritis Social History Social History Smoking packs per day: 0.5 Smoking cigarettes per day: 10.0 Years smoked: 7 Smoking pack-years: 3.50 Smoking status: Former smoker Tobacco type: cigarettes Smoking end date: 11/27/94 Additional smoking assessment comments: DENIES ANY FORM OF TOBACCO USE Alcohol intake: current Drinks per week: 3 Substance use: current Substance use type: marijuana Other substance usage details: CBD 5 DROPS BID Living arrangements: with family Spiritual care concerns: No Meds Home Medications and Allergies Home Medications Medication Instructions Recorded Confirmed Type fluticasone propionate 50 1 spray intranasal 04/06/20 04/27/23 History mcg/actuation nasal spray,suspension (Allergy Relief (fluticasone)) multivitamin (Multiple Vitamins 1 tablet PO DAILY 04/06/20 04/27/23 History tablet) carboxymethylcellulose sodium 0.5 1 drop ophthalmic (eye) BID 04/07/20 04/27/23 History % eye drops (Refresh Tears) omega-3s 300 jr-cdq-uwa-other 1,000 cap PO DAILY 04/07/20 04/27/23 History aygcg3x-bcng oil 1,000 mg capsule ([place]-3 Fish Oil) lactobacillus combination no.8 3 3,000 mmu cells PO DAILY 05/08/20 04/27/23 History billion cell capsule (Adult Probiotic) cetirizine 10 mg capsule (Zyrtec) 10 mg PO QAM 08/27/20 04/27/23 History ascorbic acid (vitamin C) 500 mg 1,000 mg PO DAILY 09/28/20 04/27/23 History tablet cholecalciferol (vitamin D3) 125 250 mcg PO DAILY 09/28/20 04/27/23 History mcg (5,000 unit) tablet (Vitamin D3) zinc 100 mg tablet 50 mg PO DAILY 09/28/20 04/27/23 History famotidine 20 mg tablet 20 mg PO DAILY #30 tabs 12/28/21 04/27/23 Rx rosuvastatin 5 mg tablet See Rx Instructions .Route 04/26/23 04/27/23 Rx .COMPLEX #90 tabs amlodipine 2.5 mg tablet 2.5 mg PO QAM 04/27/23 04/27/23 History calcium carbonate 600 mg-vitamin 2 tablet PO DAILY 04/27/23 04/27/23 History D3 10 mcg (400 unit) tablet (Calcium 600 + D(3)) flaxseed oil 1,300 mg-omega 3,6,9 1 cap PO DAILY 04/27/23 04/27/23 History 845 mg-117 mg-117 mg capsule losartan 25 mg tablet 50 mg PO QAM 04/27/23 04/27/23 Hist
--- NOTE | 2023-05-12 07:59 | PM.IMHP ---
H&P: HPI History of Present Illness Date/Time: 05/12/23 07:59 Chief Complaint: Right knee DJD Narrative: 67-year-old female patient of Dr. Rivera who presents today for right total knee arthroplasty. Patient has advanced patellofemoral osteoarthritis and moderately severe lateral compartment osteoarthritis in the knee. She has been treating this nonsurgically up to this point with anti-inflammatories and occasional cortisone injections. She is having continued symptoms on a daily basis. She feels at this point she would rather proceed with total knee arthroplasty rather continue nonsurgical treatment. Review of Systems Review of Systems: All systems reviewed & are unremarkable except as noted in HPI and below PMFSH Past Medical History Medical History Asthma Hypertension Osteoporosis Torn meniscus Surgical History Surgical History H/O tubal ligation H/O: knee surgery History of cholecystectomy History of dilatation and curettage History of hysteroscopy [place] teeth removed Family History Family History Mother Diabetes mellitus Family history of multiple sclerosis Hypertension Family history of cardiovascular disease Family history of atrial fibrillation Family history of congestive heart failure Family history of obesity Family history of osteoporosis Family history of arthritis Family history of hearing loss Grandparent Family history of cardiovascular disease Acute myocardial infarction, Onset Age: 50 Father Family history of malignant neoplasm of stomach Family history of alcoholism Sibling Family history of obesity Family history of osteoporosis Family history of arthritis Social History Social History Smoking packs per day: 0.5 Smoking cigarettes per day: 10.0 Years smoked: 7 Smoking pack-years: 3.50 Smoking status: Former smoker Tobacco type: cigarettes Smoking end date: 11/27/94 Additional smoking assessment comments: DENIES ANY FORM OF TOBACCO USE Alcohol intake: current Drinks per week: 3 Substance use: current Substance use type: marijuana Other substance usage details: CBD 5 DROPS BID Living arrangements: with family Spiritual care concerns: No Meds Home Medications and Allergies Home Medications Medication Instructions Recorded Confirmed Type fluticasone propionate 50 1 spray intranasal HS 04/06/20 04/27/23 History mcg/actuation nasal spray,suspension (Allergy Relief (fluticasone)) multivitamin (Multiple Vitamins 1 tablet PO DAILY 04/06/20 04/27/23 History tablet) carboxymethylcellulose sodium 0.5 1 drop ophthalmic (eye) BID 04/07/20 04/27/23 History % eye drops (Refresh Tears) omega-3s 300 dz-tls-gls-other 1,000 cap PO DAILY 04/07/20 04/27/23 History fccfu0a-iadp oil 1,000 mg capsule ([place]-3 Fish Oil) lactobacillus combination no.8 3 3,000 mmu cells PO DAILY 05/08/20 04/27/23 History billion cell capsule (Adult Probiotic) cetirizine 10 mg capsule (Zyrtec) 10 mg PO QAM 08/27/20 04/27/23 History ascorbic acid (vitamin C) 500 mg 1,000 mg PO DAILY 09/28/20 04/27/23 History tablet cholecalciferol (vitamin D3) 125 250 mcg PO DAILY 09/28/20 04/27/23 History mcg (5,000 unit) tablet (Vitamin D3) zinc 100 mg tablet 50 mg PO DAILY 09/28/20 04/27/23 History famotidine 20 mg tablet 20 mg PO DAILY #30 tabs 12/28/21 04/27/23 Rx rosuvastatin 5 mg tablet See Rx Instructions .Route 04/26/23 04/27/23 Rx .COMPLEX #90 tabs amlodipine 2.5 mg tablet 2.5 mg PO QAM 04/27/23 04/27/23 History calcium carbonate 600 mg-vitamin 2 tablet PO DAILY 04/27/23 04/27/23 History D3 10 mcg (400 unit) tablet (Calcium 600 + D(3)) flaxseed oil 1,300 mg-omega 3,6,9 1 cap PO DAILY 04/27/23 04/27/23 History 8
--- NOTE | 2023-06-01 10:36 | PC.NURSE ---
Report to the Outpatient Waiting Room, entrance under the green pavilion located off [facility], at time __0600____ on date ___06/14/23____. Planned Procedure Time: __0730 . Time changes happen often and if your time is changed the preop area will call you the afternoon before. - You and your visitor will be asked to self-screen and do not enter if you have any COVID symptoms. - A mask is optional within the hospital at this time. Patients may have clear liquids (water, carbonated beverages, clear teas, apple juice) until 3 hours prior to surgery with a maximum of 20 ounces. - No food from midnight until time of surgery - Infants may have breast milk until 4 hours before surgery, formula 6 hours prior to surgery. - Children will be allowed to drink immediately following surgery. If applicable, please bring a bottle or sippy cup to assist with drinking. Juice, water, soda, and popsicles are readily available. For infants on formula, please bring formula the day of surgery. Pacifiers are allowed. Take the following medications with a SIP of water the morning of surgery: _AMLODIPINE DO NOT STOP ANY OF YOUR OTHER PRESCRIPTION MEDICATIONS PRIOR TO SURGERY ?EXCEPT THE FOLLOWING Medications to discontinue per physician ___ALL VITAMINS/SUPPLEMENTS 3 DAYS PRE OP.LAST DOSE 06/10/23 Please no make-up, nail australian, hairspray, perfume, deodorant, or body powder the day of surgery. No jewelry (including any body piercings) or valuables the day of surgery, leave them at home. Please take a shower or bath the night before, or the morning of, surgery with an antibacterial soap. Wear comfortable, loose fitting clothing. Children are encouraged to wear pajamas. - Jewelry must be removed prior to entering the operating room. Rings and piercings that are not removed may be cut off. - The hospital will not accept responsibility for valuables. - Please leave all valuables, including medications, at home the day of surgery. If you are going home after surgery, a licensed laborer driver must drive you home. - NO public transportation without another adult if you receive anesthesia. - We recommend that an adult stay with you for 24 hours following discharge. - We also recommend that you do not drive, make important decision, drink alcoholic beverages, or take any drugs that were not prescribed by your health care provider for at least 24 hours after your discharge time. For Pediatric surgeries, we recommend two adults accompany the child home. Follow any additional instructions given to you from your surgeon. If you or anyone in your household have experienced Covid symptoms in the past week, please notify your surgeon or the nurse liaison at the phone number below for possible testing. Telephone instructions given to ___PATIENT and asked if any additional questions and then verbalized understanding. Patient advised to call surgeon office or pre surgery nurse liaison [phone] if any additional questions.
--- NOTE | 2023-06-01 10:43 | PC.NURSE ---
PT STATES NO CHANGE IN HEALTH HX SINCE LAST INTERVIEW ON 04/27/23
--- NOTE | 2023-06-12 12:14 | PM.IMHP ---
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 She has been having symptoms in the right knee for several years. She has been treated this nonsurgically with anti-inflammatories as well as occasional cortisone injections. It has been more than 3 months since her last injection. She is getting minimal improvement from nonsurgical treatment. She has severe lateral compartment and patellofemoral osteoarthritis in the right knee. At this point patient feels she is ready proceed with total knee arthroplasty rather than continue nonsurgical treatment Review of Systems Review of Systems: All systems reviewed & are unremarkable except as noted in HPI and below PMFSH Past Medical History Medical History Asthma Hypertension Osteoporosis Torn meniscus Surgical History Surgical History H/O tubal ligation H/O: knee surgery History of cholecystectomy History of dilatation and curettage History of hysteroscopy [place] teeth removed Family History Family History Mother Diabetes mellitus Family history of multiple sclerosis Hypertension Family history of cardiovascular disease Family history of atrial fibrillation Family history of congestive heart failure Family history of obesity Family history of osteoporosis Family history of arthritis Family history of hearing loss Grandparent Family history of cardiovascular disease Acute myocardial infarction, Onset Age: 50 Father Family history of malignant neoplasm of stomach Family history of alcoholism Sibling Family history of obesity Family history of osteoporosis Family history of arthritis Social History Social History Smoking packs per day: 0.5 Smoking cigarettes per day: 10.0 Years smoked: 7 Smoking pack-years: 3.50 Smoking status: Former smoker Tobacco type: cigarettes Smoking end date: 11/27/94 Additional smoking assessment comments: DENIES ANY FORM OF TOBACCO USE Alcohol intake: current Drinks per week: 3 Substance use: current Substance use type: marijuana Other substance usage details: CBD 5 DROPS BID Living arrangements: with family Spiritual care concerns: No Meds Home Medications and Allergies Home Medications Medication Instructions Recorded Confirmed Type fluticasone propionate 50 1 spray intranasal HS 04/06/20 06/01/23 History mcg/actuation nasal spray,suspension (Allergy Relief (fluticasone)) multivitamin (Multiple Vitamins 1 tablet PO DAILY 04/06/20 06/01/23 History tablet) carboxymethylcellulose sodium 0.5 1 drop ophthalmic (eye) BID 04/07/20 06/01/23 History % eye drops (Refresh Tears) omega-3s 300 lt-jmi-xhg-other 1,000 cap PO DAILY 04/07/20 06/01/23 History rquxy3m-pfil oil 1,000 mg capsule (Effie-3 Fish Oil) lactobacillus combination no.8 3 3,000 mmu cells PO DAILY 05/08/20 06/01/23 History billion cell capsule (Adult Probiotic) cetirizine 10 mg capsule (Zyrtec) 10 mg PO QAM 08/27/20 06/01/23 History ascorbic acid (vitamin C) 500 mg 1,000 mg PO DAILY 09/28/20 06/01/23 History tablet cholecalciferol (vitamin D3) 125 250 mcg PO DAILY 09/28/20 06/01/23 History mcg (5,000 unit) tablet (Vitamin D3) zinc 100 mg tablet 50 mg PO DAILY 09/28/20 06/01/23 History famotidine 20 mg tablet 20 mg PO DAILY #30 tabs 12/28/21 06/01/23 Rx rosuvastatin 5 mg tablet See Rx Instructions .Route 04/26/23 06/01/23 Rx .COMPLEX #90 tabs amlodipine 2.5 mg tablet 2.5 mg PO QAM 04/27/23 06/01/23 History calcium carbonate 600 mg-vitamin 2 tablet PO DAILY 04/27/23 06/01/23 History D3 10 mcg (400 unit) tablet (Calciu
[2023-06-14] VITALS (13 sets, daily range): BP systolic 98–142; BP diastolic 50–66; PULSE 60–88; RESP 12–16; TEMP 36.2–36.9; O2SAT 91–100
--- NOTE | ~2023-06-14 | XR_ITS ---
Right Knee Technique: Portable AP and crosstable lateral views Clinical History: Status post TKR Findings: Patient is status post total knee replacement. Orthopedic hardware alignment appears anatom ic. No hardware complication is evident. Subcutaneous emphysema and swelling is likely postoperative in nature. No acute osseous fracture is seen. Impression: Status post total knee replacement, without evidence of hardware complication. Reviewed, dictated and finalized at location . Impression: Status post total knee replacement, without evidence of hardware complication.
[2023-06-14] MEDS: LACTATED RINGERS 1,000 ML 30 ML IV CONT ×2 (06:35→11:05)
[2023-06-14] MEDS: ACETAMINOPHEN 500 MG TABLET 1000 MG PO ×2 (06:45→18:12)
[2023-06-14 07:09] LABS: Glucose Point of Care 118 mg/dl (65-105)
[2023-06-14] MEDS: VANCOMYCIN 1,250 MG/NS 250 ML BAG 166.67 MG IVPB (07:10)
[2023-06-14] MEDS: TRANEXAMIC ACID 1,000MG/ISO100 1,000 MG/100 ML BAG 200 MG IVPB (07:11)
--- NOTE | 2023-06-14 07:11 | WPDANESEPPF ---
Anes - Initial Pre Proc Eval Procedure: Operation Date: 06/14/23 07:30 Proposed Procedures p Right Total Knee Arthroplasty - Silviano Mccann MD Date/Time: 06/14/23 07:11 Surgeon: Silviano Mccann MD Pre Op Diagnosis: OA right knee Patient Data Age: 67 Gender: F Height: 1.63 m Weight: 88.2 kg Last Vital Signs Temp 36.6 C 04/27/23 10:55 Pulse 62 04/27/23 10:55 Resp 18 04/27/23 10:55 BP 146/86 H 04/27/23 10:55 Pulse Ox 98 04/27/23 10:55 O2 Del Method Room Air 04/27/23 10:55 Allergies Allergy/AdvReac Type Severity Reaction Status Date / Time lisinopril AdvReac Other Verified 06/14/23 06:59 Home Medications Medication Instructions Recorded Confirmed Type fluticasone propionate 50 1 spray intranasal HS 04/06/20 06/14/23 History mcg/actuation nasal spray,suspension (Allergy Relief (fluticasone)) multivitamin (Multiple Vitamins 1 tablet PO DAILY 04/06/20 06/14/23 History tablet) carboxymethylcellulose sodium 0.5 1 drop ophthalmic (eye) BID 04/07/20 06/14/23 History % eye drops (Refresh Tears) omega-3s 300 ui-psl-eqw-other 1,000 cap PO DAILY 04/07/20 06/14/23 History vklyk0x-qzdl oil 1,000 mg capsule (Abiquiu-3 Fish Oil) lactobacillus combination no.8 3 3,000 mmu cells PO DAILY 05/08/20 06/14/23 History billion cell capsule (Adult Probiotic) cetirizine 10 mg capsule (Zyrtec) 10 mg PO QAM 08/27/20 06/14/23 History ascorbic acid (vitamin C) 500 mg 1,000 mg PO DAILY 09/28/20 06/14/23 History tablet cholecalciferol (vitamin D3) 125 250 mcg PO DAILY 09/28/20 06/14/23 History mcg (5,000 unit) tablet (Vitamin D3) zinc 100 mg tablet 50 mg PO DAILY 09/28/20 06/14/23 History famotidine 20 mg tablet 20 mg PO DAILY #30 tabs 12/28/21 06/14/23 Rx rosuvastatin 5 mg tablet See Rx Instructions .Route 04/26/23 06/14/23 Rx .COMPLEX #90 tabs amlodipine 2.5 mg tablet 2.5 mg PO QAM 04/27/23 06/14/23 History calcium carbonate 600 mg-vitamin 2 tablet PO DAILY 04/27/23 06/14/23 History D3 10 mcg (400 unit) tablet (Calcium 600 + D(3)) flaxseed oil 1,300 mg-omega 3,6,9 1 cap PO DAILY 04/27/23 06/14/23 History 845 mg-117 mg-117 mg capsule losartan 25 mg tablet 50 mg PO QAM 04/27/23 06/14/23 History magnesium 200 mg tablet 400 mg PO DAILY 04/27/23 06/14/23 History metformin 500 mg tablet 250 mg PO DAILY 04/27/23 06/14/23 History pantoprazole 40 mg tablet,delayed 40 mg PO HS 04/27/23 06/14/23 History release potassium 99 mg tablet 99 mg PO QPM 04/27/23 06/14/23 History pseudoephedrine-guaifenesin ER 120 1 cap PO DAILY 04/27/23 06/14/23 History mg-250 mg capsule,extended release rutin 500 mg tablet 1,000 mg PO DAILY 04/27/23 06/14/23 History turmeric 400 mg capsule 300 mg PO DAILY 04/27/23 06/14/23 History Laboratory Tests 06/14/23 07:07 POC Capillary Glucose 118 H mg/dl (65-105) Patient hx anesthesia problems: other (cold) Family hx anesthesia problems: none Results Review: All pre-operative results and documents have been reviewed as part of the pre-operative evaluation. [facility] Past Medical History Medical History Asthma Hypertension Osteoporosis Torn meniscus Surgical History Surgical History H/O tubal ligation H/O: knee surgery History of cholecystectomy History of dilatation and curettage History of hysteroscopy [place] teeth removed Family History Family History Mother Diabetes mellitus Family history of multiple sclerosis Hypertension Family history of cardiovascular disease Family history of atrial fibrillation Family history of congestive heart failure Family history of obesity Family history of osteoporosis Family history of arthritis Family history of hearing loss Grandparent Family history of cardiovascular disease Acu
--- NOTE | 2023-06-14 07:16 | WPDHPUPDATE1 ---
History and Physical Update Update Date/Time: 06/14/23 07:16 History and Physical has been reviewed, including an updated exam of the patient. There are NO changes in the patient's condition. Risks, benefits, and alternatives have been discussed and questions answered. Patient agrees to proceed with procedure.
[2023-06-14] MEDS: ceFAZolin 2 GM/D5W 50 ML 2 GM/50 ML BAG IVPB (07:32)
[2023-06-14] MEDS: ceFAZolin SODIUM 1 GM VIAL 3 GM (08:05)
[2023-06-14] MEDS: GENTAMICIN BONE CEMENT REFOBACIN 1 EACH TOPICAL (10:00)
[2023-06-14] MEDS: ceFAZolin SODIUM 1 GM VIAL IV PUSH (10:12)
[2023-06-14] MEDS: TRANEXAMIC ACID 1,000 MG/10 ML AMPUL 1000 MG IV PUSH (10:12)
[2023-06-14 11:12] LABS: Glucose Point of Care 160 mg/dl (65-105)
--- NOTE | 2023-06-14 11:14 | PM.OP ---
Procedure Note - Brief Procedure Note - Brief Date of procedure: 06/14/23 OA right knee Procedure performed: Right total knee arthroplasty Surgeon: LOI Cordova Description of procedure: 67-year-old female who underwent right total knee arthroplasty on 06/14. I was involved in the procedure including positioning patient on your table and 1st assisting to the time of surgery. Total time spent was 3-1/2 hours
--- NOTE | 2023-06-14 11:22 | W.PM.PROC2 ---
Procedure Note - Detailed Date of Procedure 06/14/23 Pre-op Diagnosis OA right knee Post-op Diagnosis Same Procedure Performed Right total knee arthroplasty Surgeon Silviano Mccann MD Conventions Reservationist Mayur Anesthesia General Description of Procedure Patient was brought to the operating room and general anesthesia was administered. She received 2 g of Ancef weight based vancomycin and 1 g of tranexamic acid preoperatively and the right leg was prepped draped usual fashion. Limb was exsanguinated tourniquet elevated to 300 mmHg. A 7 in longitudinal incision was made and a vastus medialis splitting approach utilized splitting the vastus medialis at the level of the superior pole of patella. Was a very large superior osteophyte that was removed. Infrapatellar and suprapatellar fat pads were excised a quadriceps synovectomy carried out. A minimal resection of the lateral retinaculum from the lateral margin of the patella was performed and the median ridge thickest portion of the patella centrally measured 17 mm and the lateral facet only measured 10 mm thickness. The lateral facet was markedly scalloped due to wear and eburnated. I did not feel that the patella was thick enough to safely resurface. A guide anitha was inserted down the femoral canal after aspiration of canal contents using the 5 degree valgus cutting bushing, 9 mm of bone removed from the distal femur. Next the tibial plateau was cut. Our initial cut did not quite reach the level of subchondral bone posteriorly. Additional 2 mm of bone was cut. We made a cut perpendicular long axis of the tibia. Meniscal remnants were excised the PCL recessed. The flexion gap measured 8 mm medially and 11 mm laterally. The femur was sized with the sizing guide placed at 4? of external rotation posterior referencing pinholes were placed. The size 62.5 cutting block seemed a little bit wide but was the appropriate size anteriorly and to avoid notching we did have to introduce about 2 or 3? of flexion on the distal femoral cut. AP and chamfer cuts were made the 62.5 had adequate fit with about 1 mm of lateral overhang distally when flush with the medial femoral condyle. A smaller implant would have notched excessively. We had appropriate mediolateral balance at 90? with the 10 CR insert trial. The tibia was sized to a 67 which fit line to line anteromedial to posterolateral and this was punched and we trialed with 10 . There was appropriate stability anterior drawer but we lacked about 10? of extension. She had a 10 degree flexion contracture before surgery. Posterior capsular release was performed and posterior femoral osteophytes removed and on repeat trialing with the 10 we had a barely positive bounce lacking perhaps 1 or 2? of extension. There was 3 mm of medial opening in this position. We assessed the femoral cut carefully and with a 5 degree anitha I felt we were at about 4.5? of anatomic axis valgus on the distal femoral cut and we removed additional mm of bone from lateral femoral condyle to convert the cut to about 5.5? of valgus and this the knee came out to full extension with the 10 insert with negative bounce and a mm of lateral plateau 3 mm of medial play and appropriate stability at 90? to anterior drawer being a little bit loose medially but this tightened up with the arthrotomy reapproximation. Lug holes for the femoral component were drilled. Step drill was used to make multiple perforations in the tibial plateau and distal femur the bony surfaces thoroughly irrigated and dried. Tourniquet was real a beta. It had been put down earlier at 90 minutes. Two batches of methylmethacrylate 1 the gentamicin powder were mixed cement was applied to the tibial component the femoral component then applied the tibia pressurized and tibial component fully seated and the cement applied the femur and the femoral component fully seated the knee brought into extension with 11 mm 5 and 1 insert for pressurizati
[2023-06-14] MEDS: fentaNYL CITRATE INJ (*CRX) 100 MCG/2 ML VIAL 25 MCG IV PUSH ×4 (11:32→12:07)
[2023-06-14] MEDS: SODIUM CHLORIDE 0.9% IV 1,000 ML 125 ML IV CONT (13:04)
[2023-06-14] MEDS: KETOROLAC 15 MG/ML VIAL (*BKC) IV PUSH ×2 (13:05→16:38)
--- NOTE | 2023-06-14 13:54 | PM.IMCN ---
Assessment and Plan Assessment and plan (1) H/O: knee surgery: Code(s): Z98.890 - Other specified postprocedural states Status: Acute Assessment and Plan: Postop care per Dr. Mccann. DVT prophylaxis is as per orthopedic physician. She has SCDs on. She is on Eliquis. PT OT per orthopedic physician. Pain management per orthopedic physician (2) Borderline diabetes: Code(s): R73.03 - Prediabetes Status: Acute Assessment and Plan: The patient tells me that she is on metformin and it was continued. I do Accu-Cheks AC and HS with sliding scale insulin. (3) Dyslipidemia: Code(s): E78.5 - Hyperlipidemia, unspecified Status: Acute Assessment and Plan: Continue with Crestor (4) Essential hypertension: Code(s): I10 - Essential (primary) hypertension Status: Acute Assessment and Plan: Continue with losartan and amlodipine. HPI Data of Consult Consult date: 06/14/23 Requesting Physician: Silviano Mccann MD Primary Care Provider: PHYSICIAN NOT ON STAFF Consult Narrative Narrative: Halley Gray is a 67 year old female who has been having severe right knee pain for at least 2-3 years. Her pain is been getting progressively worse to the point where she is having pain on a daily basis. The patient has tried nonsurgical treatments without relief. The patient had a total right knee arthroplasty today per Dr. Mccann. Estimated blood loss was 250 cc. Condition was stable. No immediate complications were noted. The patient has multiple medical history and the hospitalist group has been consulted for medical management. Data consult to 06/14/2023. Review of Systems Review of Systems: All systems reviewed & are unremarkable except as noted in HPI and below Constitutional: Constitutional: Reports as per HPI and Reports no additional constitutional complaints Eyes: Eyes: Reports as per HPI and Reports no additional eye complaints ENT: Reports system reviewed and no additional complaints, except as documented and Reports Normal hearing present Cardiovascular: Cardiovascular: Reports no additional cardiovascular complaints Respiratory: Respiratory: Reports no additional respiratory complaints and Reports no additional respiratory complaints Gastrointestinal: Gastrointestinal: Reports as per HPI and Reports no additional gastrointestinal complaints Musculoskeletal: Musculoskeletal: Reports no additional musculoskeletal complaints Integumentary/Breasts: Skin/Breast: Reports system reviewed and no additional complaints, except as docu and Reports as per HPI Neurologic: Reports system reviewed and no additional complaints, except as documented, Reports as per HPI and Reports Normal hearing present Psychiatric: Psychiatric: Reports no additional psychiatric complaints and Reports as per HPI Endocrine: Endocrine: Reports no additional endocrine complaints Hematologic/Lymphatic: Hematologic/Lymphatic: Reports no additional hematologic/lymphatic complaints Allergic/Immunologic: Allergic/Immunologic: Reports no additional allergic/immunologic complaints [facility] Past Medical History Medical History (Updated 06/14/23 @ 18:23 by Lata Carreno NP) Asthma Borderline diabetes Dry eye GERD (gastroesophageal reflux disease) Hypertension Osteoporosis Postmenopausal bleeding Screening mammogram for breast cancer Torn meniscus Vaccine counseling Surgical History Surgical History (Updated 06/14/23 @ 18:28 by Lata Carreno NP) H/O cataract extraction H/O tubal ligation H/O: knee surgery History of cholecystectomy History of dilatation and curettage History of hysteroscopy History of total knee arthroplasty [place] teeth removed Family History Family History Mother Diabetes mellitus Family history of multiple sclerosis Hypertension Family history of cardiovascular disease Famil
[2023-06-14] MEDS: oxyCODONE HCL (*CRX) 5 MG TAB IR PO ×3 (14:12→20:20)
--- NOTE | 2023-06-14 15:52 | PC.NURSE ---
This patient, Halley Gray, was admitted to 3 [facility] Surg Room 327-01. Report received from ABNER Sandra. Patient/family oriented to hospital policies and general routines including ID bracelet, bed and alarms, visiting hours, pain management, procedures, bathroom and other care routines, personal items, smoking policy, room service/diet, and visiting hours. Information on how to activate the Rapid Response Team has been discussed. Patient/Family are encouraged to report perceived risks to care and to ask questions if they do not understand what they are told or what they should do.
--- NOTE | 2023-06-14 16:18 | PCPTNOTE ---
On 06/14/23, the student, MANE Rodriguez, provided care and completed [facility] documentation on this patient. I have reviewed the student's documentation and agree with the findings.
[2023-06-14] MEDS: ceFAZolin 1 GM/NS 50 ML 1 GM/50 ML BAG IVPB ×2 (16:38→23:07)
[2023-06-14] MEDS: SENNA/DOCUSATE SODIUM TABLET 2 TAB PO (16:39)
[2023-06-14] MEDS: VANCOMYCIN 1,000 MG/NS 250 ML 1,000 MG/250 ML BAG 250 MG IVPB (18:11)
[2023-06-14] MEDS: FAMOTIDINE 20 MG TABLET PO (18:13)
[2023-06-14] MEDS: FLUTICASONE PROPIONATE 0.05% NA SPR 16 GM BTL (*BKC) 1 SPRAY NASAL (20:21)
[2023-06-15] MEDS: oxyCODONE HCL (*CRX) 5 MG TAB IR PO ×3 (02:12→08:52)
[2023-06-15] MEDS: ceFAZolin 1 GM/NS 50 ML 1 GM/50 ML BAG IVPB (05:24)
[2023-06-15 06:02] VITALS: BP 107/53; PULSE 75; RESP 16; TEMP 36.4; O2SAT 98
[2023-06-15] MEDS: VANCOMYCIN 1,000 MG/NS 250 ML 1,000 MG/250 ML BAG 250 MG IVPB (06:14)
[2023-06-15 06:33] LABS: Basophils Percent Auto 0.2 % (0.2-1.2); Eosinophils Percent Auto 0.1 % (0-4.4); Hematocrit 32.1 % (37.0-47.0); Hemoglobin 10.2 g/dL (12.0-15.0); Immature Granulocyte Absolute 0.05 K/mm3 (0.00-0.031); Immature Granulocyte Percent A 0.5 % (0-0.5); Lymphocytes Absolute Auto 1.66 K/mm3 (0.9-3.2); Lymphocytes Percent Auto 16.2 % (18.3-44.2); Mean Corpuscular HGB Conc 31.8 g/dl (32-36); Mean Corpuscular Hemoglobin 31.1 pg (26-34); Mean Corpuscular Volume 97.9 fl (80-100); Mean Platelet Volume 10.7 fl (7.4-10.4); Monocytes Absolute Auto 0.9 K/mm3 (0.1-0.6); Monocytes Percent Auto 9.1 % (2.6-8.5); Neutrophils Absolute Auto 7.6 K/mm3 (1.3-6.7); Neutrophils Percent Auto 73.9 % (45.5-73.1); Platelet Count Result 188 k/mm3 (150-375); Red Blood Count 3.28 M/mm3 (4.2-5.4); Red Cell Distribution Width 12.7 % (11.5-14.5); White Blood Count 10.3 K/mm3 (4.5-10.0)
[2023-06-15 06:49] LABS: Anion Gap 4 mmol/L (8-16); Blood Urea Nitrogen 13 mg/dL (7-17); Calcium 8.1 mg/dL (8.4-10.2); Carbon Dioxide 27 mmol/L (22-30); Chloride 106 mmol/L (98-107); Estimated CRCL calculation 81 ml/min; Estimated Glomerular Filt Rate > 60; Glucose 110 mg/dL (65-110); Potassium 3.9 mmol/L (3.4-5.0); Sodium 137 mmol/L (137-145)
[2023-06-15 07:34] LABS: Hemoglobin A1C 5.9 % (<5.7)
--- NOTE | 2023-06-15 07:40 | PM.PNORT ---
Subjective Subjective Date/Time Seen: 06/15/23 07:40 Interval history: Postop day 1 patient is alert. She is afebrile vital signs are stable. Morning labs are noted. Patient was up walking yesterday physical therapy in the room. She has been up multiple times overnight to the restroom as well. Pain is well controlled. Dressing is intact and dry. Neurovascularly she is intact. Overall patient is doing very well. She will work with physical therapy today and then be discharged home later today. Objective Data Vital Signs Vital Signs: Vital Signs - 24 hr 06/14/23 11:05 06/14/23 11:20 06/14/23 11:35 Temperature 36.9 C Pulse Rate 80 88 69 Respiratory Rate 16 14 14 Blood Pressure 126/52 L 138/66 138/63 Pulse Oximetry 96 97 99 Oxygen Delivery Simple Face Mask Simple Face Mask Simple Face Mask Oxygen Flow Rate 6 6 6 06/14/23 11:45 06/14/23 11:50 06/14/23 12:05 Temperature Pulse Rate 72 70 Respiratory Rate 12 12 Blood Pressure 122/54 L 137/62 Pulse Oximetry 95 91 Oxygen Delivery Room Air Room Air Nasal Cannula Oxygen Flow Rate 2 06/14/23 12:20 06/14/23 12:45 06/14/23 13:00 Temperature 36.2 C L 36.5 C Pulse Rate 67 63 81 Respiratory Rate 12 16 16 Blood Pressure 142/62 H 122/50 L 135/54 L Pulse Oximetry 96 99 100 Oxygen Delivery Nasal Cannula Oxygen Flow Rate 2 06/14/23 13:30 06/14/23 14:14 06/14/23 14:30 Temperature 36.5 C 36.4 C Pulse Rate 78 60 Respiratory Rate 16 14 Blood Pressure 127/52 L 98/54 L Pulse Oximetry 99 98 Oxygen Delivery Room Air Oxygen Flow Rate 06/14/23 18:15 06/14/23 21:46 06/14/23 20:00 Temperature 36.7 C 36.4 C L Pulse Rate 66 74 Respiratory Rate 16 16 Blood Pressure 134/52 L 125/53 L Pulse Oximetry 100 99 Oxygen Delivery Room Air Oxygen Flow Rate 06/15/23 06:02 Temperature 36.4 C L Pulse Rate 75 Respiratory Rate 16 Blood Pressure 107/53 L Pulse Oximetry 98 Oxygen Delivery Oxygen Flow Rate Intake/Output Intake/Output: Intake & Output 07/06/13/23 06/14/23 06/15/23 23:59 23:59 23:59 23:59 Intake Total 1290 Output Total 450 500 Balance 840 -500 Meds/Results Medications: Active Medications Generic Name Dose Route Start Last Admin Trade Name Freq PRN Reason Stop Dose Admin Acetaminophen 1,000 mg 06/14/23 18:00 06/15/23 05:25 Acetaminophen 500 Mg Tablet PO Not Given Q6H [facility] Amlodipine Besylate 2.5 mg 06/15/23 09:00 Amlodipine Besylate 2.5 Mg Tablet PO QAM [facility] Apixaban 2.5 mg 06/15/23 09:00 Apixaban 2.5 Mg Tablet PO 06/26/23 21:01 Q12HR [facility] Celecoxib 200 mg 06/15/23 08:00 Celecoxib 200 Mg Capsule PO DAILY@0800 [facility] Cephalexin HCl 500 mg 06/15/23 12:00 Cephalexin 500 Mg Capsule PO Q6HR [facility] Dextrose 12.5 gm 06/14/23 18:30 Dextrose 50% 25 Gm/50 Ml Syringe IV PUSH PRN PRN Hypoglycemia Protocol Diphenhydramine HCl 25 mg 06/14/23 12:23 Diphenhydramine Hcl Inj 50 Mg/Ml Vial IV PUSH Q6H PRN Itching Famotidine 20 mg 06/14/23 21:00 06/14/23 18:13 Famotidine 20 Mg Tablet PO 20 mg Q12HR [facility] Administration Fluticasone Propionate 1 spray 06/14/23 21:00 06/14/23 20:21 Fluticasone Propionate 0.05% Na Spr 16 Gm Btl (*Bkc) NASAL 1 spray HS PRISCILA Administration Glucagon 1 mg 06/14/23 18:30 Glucagon For Inj 1 Mg Vial IM PRN PRN Hypoglycemia Protocol Glucose 15 gm 06/14/23 18:30 Glucose Oral Gel 15 Gm Of Glucse In 37.5 Gm Tube PO PRN PRN Hypoglycemia Protocol Vancomycin HCl 1,000 mg in 250 mls @ 250 mls/hr 06/14/23 19:00 06/15/23 06:14 Vancomycin 1,000 Mg/Ns 250 Ml IVPB 06/15/23 07:59 250 mls/hr Q12H PRISC[facility] Administration Dextrose 1,000 mls @ 100 mls/hr 06/14/23 18:30 Dextrose 5% 1,000 Ml IVPB PRN PRN Hypoglycemia Protocol Insulin Aspart 2 - 5 units 06/15/23 08:00 Insulin Aspart (*Bkc) 100 Units/Ml SUB-Q TID
--- NOTE | 2023-06-15 07:44 | PM.DS ---
DS: Admitting Diagnosis Discharge Date 06/15 Admitting Diagnosis Right knee DJD DS: Discharge Diagnosis Discharge Diagnosis (1) Right knee DJD: Code(s): M17.11 - Unilateral primary osteoarthritis, right knee Status: Acute DS: Summary Hospital Course Hospital Course: 67-year-old female underwent right total knee arthroplasty on 06/14. Underwent the procedure without complications. Postoperatively she has been afebrile and vital signs are stable. She is weight-bearing as tolerated. Neurovascularly she is intact. Her dressing is dry and intact. She was up with physical therapy the day of surgery and walking and up multiple times overnight the day of surgery to the restroom. Pain is well controlled with scheduled Tylenol as well as oxycodone 5 mg. She is also on Celebrex 200 mg daily. She is on Eliquis for DVT prophylaxis. Patient be discharged home on 06/15. She was advised to keep leg elevated at home to prevent swelling but do her exercises on an hourly basis. She has outpatient therapy starting next Monday. She will also go home with Senokot and MiraLax as well as a 2 week course of Keflex. Patient was advised any questions or concerns when she goes home she is to call the office otherwise we will see her at her appointments. Time Spent with Patient Time attestation: Total time spent providing and/or coordinating discharge services: DS: Data Data Completed and Pending Labs on day of discharge: Labs from last 24 hours 06/15/23 06/14/23 06/14/23 06:05 11:09 06:29 WBC 10.3 H RBC 3.28 L Hgb 10.2 L D Hct 32.1 L MCV 97.9 MCH 31.1 MCHC 31.8 L RDW 12.7 Plt Count 188 MPV 10.7 H Immature Gran % (Auto) 0.5 Neut % (Auto) 73.9 H Lymph % (Auto) 16.2 L Logan % (Auto) 9.1 H Eos % (Auto) 0.1 Baso % (Auto) 0.2 Lymph # (Auto) 1.66 Logan # (Auto) 0.9 H Eos # (Auto) 0.0 Baso # (Auto) 0.0 Abs Immat Gran (auto) 0.05 H Absolute Neuts (auto) 7.6 H Absolute Nucleated RBC 0.0 Nucleated RBC % 0.0 Sodium 137 Potassium 3.9 Chloride 106 Carbon Dioxide 27 Anion Gap 4 L BUN 13 Creatinine 0.60 L Estim Creat Clear Calc 81 Estimated GFR > 60 Glucose 110 POC Capillary Glucose 160 H Hemoglobin A1c 5.9 H Calcium 8.1 L Antibody Screen Negative Discharge Plan Discharge Patient Disposition: Home, Self-Care Discharge Instructions: RANDY GAFFNEY M.D [facility], [place] [id number] [place] [address] POST-OPERATIVE DISCHARGE INSTRUCTIONS TOTAL KNEE ARTHROPLASTY 1. When resting, lie on back with leg elevated above heart to minimize swelling. Significant swelling could indicate a blood clot and if this occurs call the office (or go to the ER) to have a venous ultrasound. 2. Do exercise 5 times a day. 3. Do not sit with leg down except for meals. 4. Wound Care: Nursing will give additional dressings at discharge. Patient to change dressing at home 1 week from surgery, then maintain until seen in office. 5. May shower with dressing in place. 6. Follow weight bearing status instructions. IMPORTANT: Remember not to sit in the chair for more than 30 minutes at a time. As a rule, during the first 14 days after surgery, only sit in the chair to work on the chair knee bending stretch exercise, for meals or for use of the restroom. Sitting in the chair promotes significant swelling in the knee and leg which will make the knee stiff and more painful and which simulates having a blood clot in the veins of the leg. If this type of significant diffuse swelling occurs, an ultrasound at the hospital will be necessary to rule out a blood clot. Be up walking around with the walker for a few minutes every hour while awake and then rest laying on your back on the couch or in bed with your leg elevated on cushions or pillows. Do not rest in the chair.
[2023-06-15 08:00] VITALS: PULSE 67; RESP 18; O2SAT 100
[2023-06-15 08:15] LABS: Glucose Point of Care 111 mg/dl (65-105)
[2023-06-15] MEDS: SENNA/DOCUSATE SODIUM TABLET 2 TAB PO (08:45)
[2023-06-15] MEDS: polyethylene glycoL 3350 17 GM POWD.PACK PO (08:46)
[2023-06-15] MEDS: FAMOTIDINE 20 MG TABLET PO (08:46)
[2023-06-15] MEDS: amLODIPine BESYLATE 2.5 MG TABLET PO (08:46)
[2023-06-15] MEDS: LOSARTAN POTASSIUM 50 MG TABLET PO (08:46)
[2023-06-15] MEDS: CHOLECALCIFEROL 1,000 UNITS TABLET 2000 UNITS PO (08:46)
[2023-06-15] MEDS: APIXABAN 2.5 MG TABLET PO (08:47)
[2023-06-15] MEDS: metFORMIN HCL 250 MG TABLET PO (08:47)
[2023-06-15] MEDS: LORATADINE 10 MG TABLET PO (08:47)
[2023-06-15] MEDS: ROSUVASTATIN 5 MG TABLET BY MOUTH (08:47)
[2023-06-15 10:19] VITALS: BP 121/59; PULSE 67; RESP 18; TEMP 36.3; O2SAT 100
--- NOTE | 2023-06-15 11:02 | PM.IMPN ---
Progress Note: A&P Assessment and Plan (1) H/O: knee surgery: Code(s): Z98.890 - Other specified postprocedural states Status: Acute Assessment and Plan: Right total knee arthroplasty 06/[address] Mccann. DVT prophylaxis is as per orthopedic physician. She has SCDs on. She is on Eliquis. PT OT per orthopedic physician. Pain management per orthopedic physician (2) Borderline diabetes: Code(s): R73.03 - Prediabetes Status: Acute Assessment and Plan: The patient tells me that she is on metformin and it was continued. I do Accu-Cheks AC and HS with sliding scale insulin. (3) Dyslipidemia: Code(s): E78.5 - Hyperlipidemia, unspecified Status: Acute Assessment and Plan: Continue with Crestor (4) Essential hypertension: Code(s): I10 - Essential (primary) hypertension Status: Acute Assessment and Plan: Continue with losartan and amlodipine. Plan Patient is okay to be discharged today, thank you allowing us to participate in the care of the patient Subjective Date/time seen: 06/15/23 11:02 Interval history: Postop day 2 patient is alert, patient is afebrile, hemodynamically stable, no new events clear issues over the night. Pain is tolerable. She is afebrile vital signs are stable. Exam Narrative: GENERAL: Pleasant, in no acute distress. Well-nourished. Obesity - EYES: EOMI. Anicteric. - HENT: Moist mucous membranes. - LUNGS: Clear to auscultation bilaterally, no wheezing, rhonchi, or rales. - CARDIOVASCULAR: Regular rate and rhythm. No murmur. No JVD. - ABDOMEN: Soft, non-tender and non-distended. No palpable masses. - EXTREMITIES: No edema. Range of movement of the right knee is restricted because of the surgical procedure, surgical wound is well dressed, dressings dry and clean. Peripheral pulses 2+. Non-tender. - NEUROLOGIC: No focal neurological deficits. CN II-XII grossly intact. - PSYCHIATRIC: Awake, Alert and oriented x 3. Appropriate mood and affect. - SKIN: No rashes or lesions. Warm. - LYMPH: No cervical lymphadenopathy. Objective Data Vital Signs Vital Signs: Vital Signs - 24 hr 06/14/23 11:05 06/14/23 11:20 06/14/23 11:35 Temperature 98.5 F Pulse Rate 80 88 69 Respiratory Rate 16 14 14 Blood Pressure 126/52 L 138/66 138/63 Pulse Oximetry 96 97 99 Oxygen Delivery Simple Face Mask Simple Face Mask Simple Face Mask Oxygen Flow Rate 6 6 6 06/14/23 11:45 06/14/23 11:50 06/14/23 12:05 Temperature Pulse Rate 72 70 Respiratory Rate 12 12 Blood Pressure 122/54 L 137/62 Pulse Oximetry 95 91 Oxygen Delivery Room Air Room Air Nasal Cannula Oxygen Flow Rate 2 06/14/23 12:20 06/14/23 12:45 06/14/23 13:00 Temperature 97.1 F L 97.7 F Pulse Rate 67 63 81 Respiratory Rate 12 16 16 Blood Pressure 142/62 H 122/50 L 135/54 L Pulse Oximetry 96 99 100 Oxygen Delivery Nasal Cannula Oxygen Flow Rate 2 06/14/23 13:30 06/14/23 14:14 06/14/23 14:30 Temperature 97.7 F 97.6 F Pulse Rate 78 60 Respiratory Rate 16 14 Blood Pressure 127/52 L 98/54 L Pulse Oximetry 99 98 Oxygen Delivery Room Air Oxygen Flow Rate 06/14/23 18:15 06/14/23 21:46 06/14/23 20:00 Temperature 98.0 F 97.5 F L Pulse Rate 66 74 Respiratory Rate 16 16 Blood Pressure 134/52 L 125/53 L Pulse Oximetry 100 99 Oxygen Delivery Room Air Oxygen Flow Rate 06/15/23 06:02 06/15/23 10:19 Temperature 97.5 F L 97.3 F L Pulse Rate 75 67 Respiratory Rate 16 18 Blood Pressure 107/53 L 121/59 L Pulse Oximetry 98 100 Oxygen Delivery Oxygen Flow Rate Intake/Output Intake/Output: Intake & Output 06/12/23 06/13/23 06/14/23 06/15/23 23:59 23:59 23:59 23:59 Intake Total 1290 240 Output Total 450 500 Balance 840 -260 Meds/Results Medications: Active Medications Generic Name Dose Route Start Last Admin Trade Name Freq PRN Reason Stop Dose Admin Acetaminophen 1,000 mg 07
[2023-06-15 12:16] LABS: Glucose Point of Care 114 mg/dl (65-105)
[2023-06-15] MEDS: CEPHALEXIN 500 MG CAPSULE PO (12:38)
== END 2023-06-15 14:00 | disposition home or self-care (01) ==
LOC: ANHSURGERY 06:08 → ANH3MEDSUR 12:29
PROVIDERS: Nurse Practitioner; Physician Assistant Surgical; Visit Provider Orthopaedic Surgery
PROC: (CPT 27447; principal; 2023-06-14 07:30)
DX: M17.11 Unilateral primary osteoarthritis, right knee (principal); M81.0 Age-related osteoporosis without current pathological fracture; M23.209 Derangement of unspecified meniscus due to old tear or injury, unspecified knee; R73.03 Prediabetes; E78.5 Hyperlipidemia, unspecified; K21.9 Gastro-esophageal reflux disease without esophagitis; J45.909 Unspecified asthma, uncomplicated; I10 Essential (primary) hypertension; Z87.891 Personal history of nicotine dependence; F12.90 Cannabis use, unspecified, uncomplicated; Z79.84 Long term (current) use of oral hypoglycemic drugs
CPT/HCPCS: 27447; 36415; 73560; 80048; 80307; 82040; 82948; 83036; 85025; 86850; 86900; 86901; 87081; 93005; 97110; 97116; 97161; 97165; 97530; 97535; A9270; C1713; C1776; J0171; J0690; J1100; J1170; J1885; J2250; J2270; J2405; J2704; J2710; J2795; J3010; J3370; J7030; J7120

== ENCOUNTER 2025-05-20 13:54 | Outpatient (CLI) | payer MEDICARE, SELFPAY ==
--- NOTE | ~2025-05-20 | MM_ITS ---
EXAMINATION: MM screening jessica BI w luis HISTORY: Screening mammogram, family history of breast cancer in her sister. TECHNIQUE: Craniocaudal and mediolateral oblique 3-D tomosynthesis images were obtained and synthetic 2-D images were generated. CAD analysis was submitted and interpreted. COMPARISON: 09/23/2020 BREAST PARENCHYMAL COMPOSITION:Not Dense. The breasts are almost entirely fatty FINDINGS: No suspicious mass, calcification, or architectural distortion are identified in either katerina ast to suggest malignancy. There has been no suspicious interval change. IMPRESSION: No mammographic evidence of malignancy. Recommend routine screening mammography in one year. BI-RADS Category 1: Negative Reviewed, dictated and finalized at location .
--- NOTE | ~2025-05-20 | DEXA_ITS ---
Bone Density Report Name: MELO HAMMOND Age: 69 Sex: Female Ethnicity: White Date of : 1955 Indication: postmenopausal; screening for osteoporosis; Referring Provider: LATRELL KAUR Study: Bone densitometry was performed. Exam Date: May 20, 2025 Accession number: [id number] Bone Density: Region BMD T-score Z-score Classification AP Spine(L1-L4) 1.011 -0.3 1.8 Normal Femoral Neck (Left) 0.743 -1.0 0.9 Normal Total Hip (Left) 0.871 -0.6 1.0 Normal Femoral Neck (Right) 0.704 -1.3 0.5 Osteopenia Total Hip (Right) 0.838 -0.9 0.7 Normal Total Hip Mean 0.854 -0.8 0.9 Normal World Health Organization criteria for BMD impression classify patients as: Normal (T-score at or above -1.0), Osteopenia (T-score between -1.0 and -2.5), or Osteoporosis (T-score at or below -2.5). 10-year Fracture Risk(1): Major Osteoporotic Fracture 9.2% Hip Fracture 1.2% Reported Risk Factors: [place] (), Neck BMD=0.704, BMI=31.0 (1) FRAX(R) Version 3.08. Fracture probability calculated for an untreated patient. Fracture probability may be lower if the patient has received treatment. Clinical Information Provided by Patient: Has used the following medications: Vitamin D, Calcium Patient maximum height was 64 Menopause Age: 55 No regular weight bearing exercise Onset of menses at age 15 Number of children 2 Impression: The patient has low bone mass, based on the Right Femoral Neck T-score. The patient has an estimated ten-year risk of hip fracture of 1.2% and an estimated ten-year risk of major fracture of 9.2%, based on the WHO FRAX algorithm. Discussion: BONE DENSITY IS LOW AT ONE OR MORE SKELETAL SITES. This patient's lowest T-score is low at one or more skeletal sites. It meets the World Health Organization's (WHO) criteria for ?low bone mass? (T-score between -1.0 and -2.5). The patient's 10-year risk of fracture as calculated by FRAX is less than the threshold where pharmacological therapy is recommended by the National Osteoporosis Foundation (NOF). However, all treatment decisions require clinical judgment and consideration of individual patient factors, including patient preferences, comorbidities, previous drug use, risk factors not captured in the FRAX model (e.g., frailty, falls, vitamin D deficiency, increased bone turnover, interval significant decline in bone density) and possible under or overestimation of fracture risk by FRAX. The patient should follow a healthful lifestyle (good nutrition with adequate calcium and vitamin D, and appropriate weight-bearing exercise). Follow-Up: Consider repeating this study in 2 to 3 years to reassess this patient's status, or sooner if there is some new clinical indication. Reported by: SANTOS on 05/20/2025 3:06:00 PM. Reviewed, dictated and finalized at location A.
== END 2025-05-20 13:55 | disposition home or self-care (01) ==
PROVIDERS: PCP Nurse Practitioner Family; Visit Provider Nurse Practitioner Family
DX: Z12.31 Encounter for screening mammogram for malignant neoplasm of breast (principal); M85.851 Other specified disorders of bone density and structure, right thigh; Z78.0 Asymptomatic menopausal state
CPT/HCPCS: 77063; 77067; 77080